=== PATIENT | male | born 1945 | race Caucasian/White ===

== ENCOUNTER 2019-12-22 13:39 | Emergency (ER) | payer MEDICAID ==
[~2019-12-22] VITALS: Ht 177.8 cm; Wt 90.2 kg
[2019-12-22] MEDS ORDERED: SODIUM CHLORIDE 0.9% 1,000 ML IV ONE (14:24)
[2019-12-22 15:26] LABS: CHLORIDE 103 mEq/L (98-107)
[2019-12-22 15:27] LABS: BASOPHILS % 0.5 % (0.0-2.0); EOSINOPHILS % 1.2 % (0.0-5.0); HEMATOCRIT. 40.6 % (42.0-52.0); HEMOGLOBIN. 13.8 g/dL (14.0-18.0); MEAN CORPUSCULAR HEMOGLOBIN 29.3 pg (28.0-32.0); MEAN CORPUSCULAR VOLUME 86.1 fL (80.0-94.0); MEAN PLATELET VOLUME 7.9 fl (7.4-10.4); MONOCYTES % 5.5 % (2.0-8.0); NEUTROPHILS % 75.8 % (40.0-76.0); PLATELET 216 x1000/uL (130-400); RED BLOOD CELL COUNT 4.72 mill/uL (4.7-6.1); RED CELL DISTRIBUTION WIDTH 14.3 % (11.6-14.6)
[2019-12-22 15:31] LABS: PROTHROMBIN TIME 10.9 sec (9.6-11.0)
[2019-12-22] MEDS ORDERED: ACETAMINOPHEN 325MG TABLET PO ONE (15:45)
[2019-12-22] MEDS ORDERED: LABETALOL HCL 20MG/4ML CARPUJECT IV ONE (16:15)
[2019-12-22 16:23] VITALS: BP 180/115
[2019-12-22] MEDS ORDERED: HYDRALAZINE HCL 25MG TABLET PO ONE (16:30)
== END 2019-12-22 17:07 | disposition home or self-care (01) ==
LOC: ER 14:00
DX: R07.89 Other chest pain (principal)
CPT/HCPCS: 36415; 71045; 80053; 83605; 84484; 85025; 85610; 93005; 99285; J7030; J3490